=== PATIENT | female | born 1980 | race Caucasian/White ===

== ENCOUNTER 2025-01-09 12:45 | Outpatient (AMB) | payer OTHER, SELFPAY ==
[2025-01-09 12:53] VITALS: BP 128/90; PULSE 93; TEMP 36.9; BMI 28.3
--- NOTE | 2025-01-09 12:53 | A.PHYSOV_ITS ---
Vital Signs 01/09/25 12:53 Height 5 ft 5 in Weight 170 lb BMI 28.3 BP 128/90 H Pulse 93 Temp 98.4 F Intake Visit Reasons: Right Lumbar TFE L4 Intake Note: Patient is a 44 year old female in office today for a right L4 transforaminal epidural injection. Insurance Service Representative Required: No Allergies hydrocodone (From Vicodin) Allergy (Unknown, Verified 01/09/25 12:53) Unknown [facility] Medical History Lumbar radiculitis Surgical History History of neck surgery History of back surgery Social History Household Members: Spouse Alcohol intake: current Alcohol intake frequency: holidays/special occasions only Patient Tobacco Use Status: Current everyday Tobacco user Current occupational status: employed Physical Exam Vital Signs: Last Vital Signs Temp 98.4 F 01/09/25 12:53 Pulse 93 01/09/25 12:53 BP 128/90 H 01/09/25 12:53 BMI result Body Mass Index 28.3 Office Procedures Procedure Details: Procedure performed: Right L4 transforaminal epidural steroid injection Preop diagnosis: Lumbar radiculitis Postop diagnosis: The same Anesthesia: Local After informed consent was obtained, patient was placed on the procedure table in a prone position. Skin over lumbosacral area was prepped and draped in usual sterile manner. Right L4 pedicle was visualized utilizing fluoroscopy. 5 inch 22 gauge spinal needle was introduced percutaneously and advanced towards the pedicle at about 6 o'clock position. Once level of neural foramina was reached, needle placement was verified utilizing 3 cc of Omnipaque contrast solution. Excellent flow through the neural foramina and epidural spread was identified without evidence of vascular uptake. Total volume of 6 cc containing 2 cc of 1% lidocaine, 40 mg of triamcinolone and normal saline solution were injected after negative aspiration for blood and cerebrospinal fluid. Radiation exposure was documented in the chart. Lumbar transforaminal Epidural Steroid Inj- use with FL Gd: 54179 - Single Procedure code (CPT) selection complete Office Meds Kenalog 40 mg/mL suspension for injection Performing Provider: Aaron Rai DO Performing Location: [facility] [place] [facility] Administered by: Aaron Rai DO on 01/09/25 12:55 Dose Route Admin Location Dispensed Lot Number Expiration Date [facility] [place] [facility] [employer] 40 mg epidural 1 mL [address]-0 [employer] Total Dispensed Waste 1 mL 0 % lidocaine (PF) 10 mg/mL (1 %) injection solution Performing Provider: Aaron Rai DO Performing Location: [facility] Administered by: Aaron Rai DO on 01/09/25 12:55 Dose Route Admin Location Dispensed Lot Number Expiration Date [facility] [place] [facility] [employer] 50 mg epidural 5 mL [id number] [employer] Total Dispensed Waste 5 mL 0 % Omnipaque 300 300 mg iodine/mL intravenous solution Performing Provider: Aaron Rai DO Performing Location: [facility] Administered by: Aaron Rai DO on 01/09/25 12:55 Dose Route Admin Location Dispensed Lot Number Expiration Date [facility] [place] [facility] [employer] 3 mL epidural 10 mL [id number] [employer] [facility] Total Dispensed Waste 10 mL 70 % Assessment & Plan Assessment & Plan (1) Lumbar radiculitis: Code(s): M54.16 - Radiculopathy, lumbar region Category: Medical Plan: Procedure Plan Procedure Orders: Orders FL Gd Lumbar Transforaminal In Today M54.16 - Radiculopathy, lumbar region AMB Lumbar transforaminal Epidural Steroid Injection Today M54.16 - Radiculopathy, lumbar region Coding Level of Care Code Procedure Only Diagnoses Lumbar radiculitis M54.16 CPT Codes Lumbar transforaminal Epidural Steroid I - CPT TRANSFORM: 34772 - Single ([id number])
== END 2025-01-09 14:19 | disposition home or self-care (01) ==
LOC: HO.HPHYS 12:45
PROVIDERS: Visit Provider Physical Medicine & Rehabilitation
DX: M54.16 Radiculopathy, lumbar region (principal)
CPT/HCPCS: 64483

== ENCOUNTER 2025-01-09 12:45 | Outpatient (REF) | payer OTHER, SELFPAY | END 2025-01-09 12:46 | disposition home or self-care (01) | LOC: HO.HPHYSR 12:45 | PROVIDERS: Visit Provider Physical Medicine & Rehabilitation | DX: M54.16 Radiculopathy, lumbar region (principal) | CPT/HCPCS: 64483; J2003; J3301; Q9967 ==